=== PATIENT | male | born 1965 | race Caucasian/White ===

== ENCOUNTER 2022-05-01 17:08 | Emergency (ER) | payer OTHER ==
[~2022-05-01] VITALS: Ht 180.3 cm; Wt 113.4 kg
[~2022-05-01 17:08] MED LIST: CITALOPRAM HBR20 MG PO; CYCLOBENZAPRINE10 MG PO; LANTUS SOL100 UNIT/1 SUB-Q; LOVASTATIN10 MG PO; NOVOLOG100 UNIT/1 SUB-Q; ZESTORETIC 10-121 E1 PO
[2022-05-01] MEDS ORDERED: CYCLOBENZAPRINE10 MG PO (19:39)
[2022-05-01] MEDS ORDERED: MELOXICAM15 MG PO (19:39)
== END 2022-05-01 20:52 | disposition home or self-care (01) ==
LOC: ED 17:08
DX: S76.912A Strain of unspecified muscles, fascia and tendons at thigh level, left thigh, initial encounter (principal); W10.9XXA Fall (on) (from) unspecified stairs and steps, initial encounter; I10 Essential (primary) hypertension; E11.9 Type 2 diabetes mellitus without complications; Z79.4 Long term (current) use of insulin; Z87.891 Personal history of nicotine dependence; Z79.899 Other long term (current) drug therapy
CPT/HCPCS: 73552; 96374; 99283-25; J1885